=== PATIENT | female | born 1960 | race Caucasian/White ===

== ENCOUNTER 2023-01-14 08:00 | Outpatient (AMB) | payer OTHER, SELFPAY ==
--- NOTE | 2023-01-14 08:05 | MHC.OFFWIV ---
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 Patient reports she does not have a primary care provider and has been assigned one recently. She has not seen any provider in the past 5 years. 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 She was diagnosed with bone spur in the left foot 5 years ago. One week ago she started having swelling in the left ankle. As she continues to stand at work, the swelling extends up to the knee. Able to walk with no difficulty. Physical Exam Vital Signs: Last Vital Signs Temp 98.1 F 01/14/23 08:06 Pulse 74 01/14/23 08:06 BP 134/70 01/14/23 08:06 Pulse Ox 96 01/14/23 08:06 Oxygen Delivery Method Room Air 01/14/23 08:06 Extrem Other: Left ankle/leg: Swelling over the ankle and the dorsum of the foot. No tenderness. Assessment & Plan Assessment & Plan (1) Sprain of left ankle: Code(s): S93.402A - Sprain of unspecified ligament of left ankle, initial encounter Plan: X-ray images were personally reviewed by me. Evidence of a large bone spur in the calcaneal area and a possible avulsion at the distal end of the tibia. Aircast given. Orthopedic appointment made. Meloxicam called in. Orders: Orders XR ankle LT min 3V Today S93.402A - Sprain of unspecified ligament of left ankle, initial encounter Referrals Orthopedics Referral S93.402A - Sprain of unspecified ligament of left ankle, initial encounter Medications: New meloxicam 15 mg PO DAILY 14 tabs 0RF Coding Level of Care Code New Pt Level 4 (48845) Diagnoses Sprain of left ankle S93.402A
[2023-01-14 08:06] VITALS: BP 134/70; PULSE 74; TEMP 36.7; O2SAT 96
== END 2023-01-14 08:51 | disposition home or self-care (01) ==
PROVIDERS: Visit Provider Internal Medicine
DX: S93.402A Sprain of unspecified ligament of left ankle, initial encounter (principal)
CPT/HCPCS: 99204

== ENCOUNTER 2023-01-14 08:18 | Outpatient (REF) | payer OTHER, SELFPAY ==
--- NOTE | ~2023-01-14 | XR_ITS ---
EXAMINATION: XR ANKLE, LEFT CLINICAL INFORMATION: Left ankle pain. COMPARISON: None available. TECHNIQUE: AP, lateral, and mortise views of the left ankle. FINDINGS: The ankle joint and mortise are intact. There is no acute fracture or dislocation. The tarsal bones are normally aligned. Small dorsal spur off of the anterior margin of the talus. Small plantar and moderate retrocalcaneal spurs are noted. Calcification is seen in the region of the mid to distal Achilles tendon. Moderate to severe atherosclerosis. XR/XR ankle LT min 3V IMPRESSION: 1. No acute left ankle abnormality. Degenerative spurs and calcification in the region of the mid to distal Achilles tendon all of chronic appearance. Calcification in the region of the Achilles tendon may be secondary to old injury. Correlate with patient history and physical exam.
== END 2023-01-14 08:19 | disposition home or self-care (01) ==
LOC: HO.HMGCX 08:18
PROVIDERS: Visit Provider Internal Medicine
DX: S93.402A Sprain of unspecified ligament of left ankle, initial encounter (principal); M65.862 Other synovitis and tenosynovitis, left lower leg; X58.XXXA Exposure to other specified factors, initial encounter; Y93.9 Activity, unspecified; Y92.9 Unspecified place or not applicable; Y99.9 Unspecified external cause status
CPT/HCPCS: 73610